=== PATIENT | male | born 1960 | race Caucasian/White ===

== ENCOUNTER 2016-08-09 17:23 | Emergency (ER) | payer OTHER ==
[~2016-08-09] VITALS: Ht 177.8 cm; Wt 88.2 kg
[~2016-08-09 17:23] MED LIST: AMIT100T2 PO; BUPR150T9 PO; CYCL5TAB PO; DOCU250C2 PO; LIT150 PO; LIT300 PO; MELO-253 PO; PRAZ1CAP PO; QUET300T44 PO; RISP0.5T4 PO; VENL75CA PO
[2016-08-09 17:32] VITALS: BP 118/68; PULSE 96; RESP 18; O2SAT 97
--- NOTE | 2016-08-09 21:33 | ED.REPORT ---
HPI-Hip/Pelvis Prob/Inj Date of Service August 09, 2016 ED Provider: Enrico So MD Pt is a 55 y.o. male who presents to the ED c/o left hip pain rated at a 9 onset 7 weeks ago. Pt denies a mechanism of injury. He states that he was seen by Dr. Bagley, Orthopedic Surgeon, 3 weeks ago and he recieved an injection in his left hip. He states that the injection did not provide any relief and that his pain is constant. The pt rates the pain at a 10 when he bears weight. He states that an x-ray has been performed and he was dx with bursitis. Pt LWBS by provider Nursing Notes Stated Complaint: LT HIP PAIN Chief Complaint: Extremity Trauma Nursing Notes Reviewed: Yes Allergies: Coded Allergies: morphine (Verified Allergy, Severe, LIVER TOXICITY, 01/16/16) carbamazepine (Verified Allergy, Unknown, UNKNOWN, 01/16/16) fentanyl (Verified Allergy, Unknown, UNKNOWN, 01/16/16) iodine (Verified Allergy, Unknown, 01/16/16) tramadol (Verified Allergy, Unknown, UNKNOWN, 01/16/16) aripiprazole (Verified Adverse Reaction, Severe, FLUSHING, 01/16/16) Uncoded Allergies: IODINE (DYE) (Allergy, Severe, ANAPHYLAXIS, 07/20/13) asafetida (Allergy, Severe, anaphylaxis, 10/30/15) Scheduled Amitriptyline (Amitriptyline) 100 Mg Tablet 125 MG PO HS Bupropion HCl (Zyban) 150 Mg Tablet.er 150 MG PO DAILY Tonsina Carbonate (Tonsina Carbonate) 300 Mg Cap 600 MG PO HS TAKE ALONG WITH 150MG CAPSULE FOR A TOTAL OF 750MG A DAY Tonsina Carbonate (Tonsina Carbonate) 150 Mg Capsule 150 MG PO HS TAKE ALONG WITH (2) 300MG CAPSULES FOR A TOTAL OF 750MG AT BEDTIME Meloxicam (Meloxicam) 15 Mg Tablet 15 MG PO BID Prazosin (Minipress) 1 Mg Capsule 2 CAPSULE PO BID Quetiapine Fumarate (Quetiapine Fumarate) 300 Mg Tablet 300 MG PO HS Risperidone (Risperidone) 0.5 Mg Tablet 1.5 MG PO HS Venlafaxine ER (Effexor XR) 75 Mg Cap.er.24h 150 MG PO DAILY Scheduled PRN Cyclobenzaprine (Cyclobenzaprine) 5 Mg Tablet 5 MG PO TID PRN PRN Spasm Docusate Sodium (Docusate Sodium) 250 Mg Capsule 250 MG PO DAILY PRN PRN For Constipation Chief Complaint Hip pain left Hx Obtained From: Patient Arrived By: Walk-in Onset Occurred: More than a week ago... Symptom Duration: Since onset Progression Since Onset: Constant Quality: Painful Severity: Current: Pain level 9 out of 10 Severity: Maximum: Pain level 10 out of 10 Past Medical History Past Medical History none reported Past Surgical History none reported Family History Mother: CAD at age 30, of SD in 60's Smoking History Former Smoker Social History Alcohol Use: Denies alcohol use Drug Use: Denies drug use Other Social History: Local resident Ambulatory Status Independent Physical Exam Initial Vital Signs Vital Signs (First) Date Time Temp Pulse Resp B/P Pulse Ox O2 Delivery O2 Flow Rate FiO2 08/09/16 17:32 36.8 96 18 118/68 97 Room Air Initial VS: Reviewed Re-Eval/Medical Decision Re-Evaluation/Progress : Time of Eval: 21:36 Re-Evaluation/Progress Note: Pt is not present in the room. Discharge & Departure Disposition: LEFT WITHOUT BEING SEEN Referrals: Santos Edouard MD (PCP) Scribe Attestation Portions of this note were transcribed by Junie Carey. I, Dr. So personally performed the history, physical exam and medical decision-making; I reviewed and confirmed the accuracy of the information in the transcribed note. Signed by: Amee Millan, 08/10/16 and 0007. Enrico So MD August 09, 2016 21:33 JUNIE CAREY August 09, 2016 21:38
== END 2016-08-09 22:00 | disposition left against medical advice (07) ==
LOC: SED 17:23
DX: Z53.21 Procedure and treatment not carried out due to patient leaving prior to being seen by health care provider (principal)